=== PATIENT | female | born 1955 | race African-American/Black ===

== ENCOUNTER → 2017-01-08 | Outpatient (CLI) | payer OTHER ==
[~2017-01-08] VITALS: Ht 165.1 cm; Wt 69.4 kg
[~2017-01-08] MED LIST: ALDACTONE25 MG PO; ALPRAZOLAM; ALPRAZOLAM 0.0.25 M1 PO; ALPRAZOLAM 0.0.25 MG PO; AMBIEN 5 MG TABL5 M1 PO; AMBIEN CR 6.26.25 MG OR; AMBIEN CR 6.26.25 MG PO; AMBIENCR; AMITIZA 24 MCG24 MC1 PO; AMITRIPTYLINE H25 M2 PO; AMITRIPTYLINE H25 M3 PO; AMITRIPTYLINE H50 M2 GT; AMITRIPTYLINE H50 M2 PO; ANASPAZ0.125 MG; ANUCORT-HC25 MG RE; ARICEPT 5 MG TAB5 MG PO; ARICEPT PO; ARICEPT10 M1 PO; ARICEPT23 MG PO; ASA5UEC PO; ASPIR 8181 MG PO; AVELOX 400 MG400 MG PO; BACTROBAN CREAM30 G1 NS; BACTROBAN CREAM30 G1 TOP; BENTYL 20 MG TA20 M1 PO; BENTYL20 MG PO; BUPRENORPHIN-N1 EACH SL; BUTRANS1 EAC1 TD; CARAFATE 1 GM TA1 G1 PO; CARDIZEM; CARDIZEM CD240 MG PO; CATAPRES-TTS 20.2 M1 TRANSDERM; CLARITIN10 MG PO; COREG3.125 MG PO; CORTISPORIN EY7.5 ML INTRAOCULR; CYMBALTA30 MG PO; CYMBALTA60 MG PO; DILTIAZEM ER240 M1 PO; DOLOPHINE HCL5 MG PO; DONEPEZIL HCL5 MG; DOXYCYCLINE 10100 MG PO; E.E.S. 200200 MG/5 M PO; ELAVIL PO; ENBREL 25 MG KI25 M1; ENBREL SC; ENTRESTO 24 MG1 EACH PO; ERAXIS IV; ERGOCALCIF50000 UNIT; ERGOCALCIF50000 UNIT PO; FENTANYL PA25 MCG/HR TP; FLONASE 0.05%50 MCG INH; FLONASE 0.05%50 MCG NS; FLUCONAZOLE PO; FUROSEMIDE 40 M40 MG PO; GEMFIBROZIL 60600 MG PO; GLYCOLAX POWDER17 G1 PO; HUMIRA20 MG/0.4 INJ; HUMIRA20 MG/0.4 SQ; HUMIRA40 MG/0.8 SUBQ; HYDROCHLOROTH12.5 MG PO; HYDROCODON-ACE1 EAC5 PO; HYDROCODON-ACE1 EAC7 PO; HYZAAR 50-12.51 EACH PO; IMURAN 50MG TAB50 M1 PO; K-DUR 20 MEQ T20 MEQ PO; KEPPRA 500 MG500 M1 PO; KLOR-CON 1010 MEQ PO; LANOXIN 0.120.125 M1 PG; LANOXIN 0.120.125 M1 PO; LANOXIN 0.120.125 M2 PO; LANTUS; LANTUS IJ; LANTUS SUBQ; LASIX 20 MG TAB20 MG PO; LASIX 40 MG TAB40 M1 PO; LASIX 40 MG TAB40 M2 PO; LASIX 40 MG TAB40 MG PO; LEVAQUIN 500 M500 M2 PO; LEVAQUIN 500 M500 M4 PO; LEVAQUIN 500 M500 M6 PO; LEVAQUIN 500 M500 MG PO; LEVEMIR SQ; LEVOTHYROXIN0.025 MG PO; LOSARTAN-HCTZ1 EACH PO; LUNESTA3 MG PO; MAGOX 400400 MG PO; MELATONIN3 MG PO; METHADONE HCL5 MG OR; METHADONE HCL5 MG PO; METOCLOPRAMIDE10 MG PO; MIRALAX255 GM; MUCINEX TA600 MG/TA1 PO; NEXIUM40 MG PO; NITROGLYCERIN0.4 MG SUBLING; NORCO 10-325 T1 EACH PO; NORCO 5-325 TA1 EACH; NOVOLIN R100 UNIT/1 SQ; NOVOLOG; NOVOLOG100 UNIT/1; NOVOLOG100 UNIT/1 IJ; ONDANSETRON HCL4 M2 PO; PHENERGAN-CODE120 ML PO; PILOCARPINE HC7.5 MG; PILOCARPINE HC7.5 MG PO; PLAVIX 75 MG TA75 M1 PO; POLYETHYLENE G255 GM PO; POTASSIUM20 PO; PREDNISOLONE 5 M5 MG PO; PREDNISONE 10 M10 M1 PO; PREDNISONE 5 MG5 M1 PO; PREDNISONE 5 MG5 MG PO; PROAIR HFA8.5 GM IH; PROAIR HFA8.5 GM INH; PROBIOTIC1 EAC1 PO; PROCHLORPERAZINE5 M1 PO; PROPOXY-N-APAP1 EACH PO; PROTONIX40 M1 PO; PROZAC 20 MG20 M1 PO; RANITIDINE 150150 MG PO; REGLAN 10 MG TA10 MG PO; RELAFEN500 MG PO; RELAFEN750 MG PO; REMERON15 MG PO; REMERON30 MG OR; RIFAMPIN 300 M300 M1 PO; SONATA10 MG PO; SUBOXONE 2 MG-1 EAC2 SL; SUBOXONE 2 MG-1 EACH SL; SUBOXONE 2 MG-1 EACH SUBLING; SUBOXONE 8 MG-1 EAC1 SL; SUBOXONE 8 MG-1 EAC1 SUBLING; SUBOXONE 8 MG-1 EAC2 SL; SUBOXONE SL; SUDAFED30 MG PO; SYSTANE 0.3-0.1 EACH; TESSALON PERLE100 MG PO; TOPROL XL25 MG PO; TRIAMCINOLONE; TRIAMCINOLONE A80 G2 TOP; TYLENOL325 MG PO; ULTRAM 50MG TAB50 MG PO; VITAMIN B-12500 MCG PO; VITAMIN D 5050000 I1 PO; VITAMIN D400 UNI1 PO; VOLTAREN GEL 1100 G1 TOP; XALATAN2.5 ML OP; XALATAN2.5 ML OPHTHALMIC; XOPENEX 0.63 MG/3 M1 INH; XOPENEX0.63 MG/3 IH; XOPENEX0.63 MG/3 INH; ZANTAC 150MG T150 M1 PO; ZANTAC 150MG T150 MG PO; ZESTRIL5 MG PO; ZOFRAN ODT4 MG PO; ZOLPIDEM TART12.5 MG PO; ZYPREXA5 MG PO; [UNRECOGNIZED DRUG - OTHER]
--- NOTE | ~2017-01-08 | HPC ---
[facility] [place] [address] PAIN MANAGEMENT CONSULTATION Name: OTTONIEL INCK Room #: REG LAILA Lexis#: [id number] Admission: 01/08/17 Attend Phys: Memo Juarez DO Discharge: Date of : 51 Report #: [id number] THIS REPORT FOR: //name// CC: Abimbola Juarze HISTORY OF PRESENT ILLNESS: The patient is a very pleasant 61-year-old female well known to pain clinic, typically treated for scleroderma, chronic pain syndrome requiring complex medication management. Last seen in the pain clinic on 10/30/2016. Last urine drug screen was on October 2015, repeated on October 30 at last visit, positive for prescribed medications. She returns to pain clinic today noting medications are typically providing sufficient analgesia to participate in activities of daily living, chronic pain in her esophageal and right chest area. She notes it is a dull, chronic aching, made worse with cold air and seems to be worse in the afternoon, though medications do provide sufficient analgesia for her to participate in activities of daily living. Notes today that she has actually been a little bit worse recently. complaining of some shortness of breath and some sedation. Again, extremely low dose of opioid, Butrans patch at 5 mcg q. 7 days. Does use amitriptyline 50 mg at bedtime. Had prior been admitted to the hospital earlier this year for congestive heart failure. PHYSICAL EXAMINATION: VITAL SIGNS: Today shows 61-year-old female, BMI is 25.5 kilograms per meter squared. Blood pressure 109/57, pulse 76, respirations 14. She had fairly cold fingers, we were unable to get her oxygen saturation. NEUROLOGIC: Cranial nerves 2-12 are grossly intact. She has somewhat of a flat affect, but this is the patient's baseline. Cervical range of motion is modestly limited. PULMONARY: Sounds are distant, as unchanged. HEART: Regular rhythmical. No murmurs are noted. MUSCULOSKELETAL: The patient is, however, complaining of some anxiety and did note that she subjectively had some left arm pain, though this is not present at this time. NECK: Cervical range of motion is adequate. ASSESSMENT: History of scleroderma, pulmonary fibrosis, Sjogren syndrome requiring complex medication management, history of congestive heart failure, coronary artery disease. RECOMMENDATION: Discussed with the patient my concern that some of her sedation and shortness of breath as well as the left arm pain earlier may have been an anginal equivalent. Strongly recommend she follow up with her automobile glass technician. I have taken the liberty of continuing the buprenorphine at a low dose of 5 mcg q[address] [address] PAIN MANAGEMENT CONSULTATION Name: OTTONIEL NICK Room #: REG LAILA Pires#: [id number] Admission: 01/08/17 Attend Phys: Memo Juarez DO Discharge: Date of : 51 Report #: [id number] 7 days. I have taken the liberty of writing for 2 months of current medications. We will revise her Elavil prescription, currently taking 50 mg at bedtime, I wrote for two 25 mg tablets at night and asked her to drop down to 1 tablet for the next few days to see if that helps with her daytime somnolence. If it does not, again she will need to follow up with her automobile glass technician. Discharged in good and stable condition after moderately prolonged visit was spent with the patient, greater than 50% of the 25-minute visit was spent counseling the patient. <ELECTRONICALLY SIGNED> By: Memo Juarez DO 01/09/17 1308 [id number] [id number] Memo Juarez DO /nt
[2017-01-08 08:28] VITALS: BP 119/57
== END ==
LOC: PAIN 01-05 11:20
DX: G89.29 Other chronic pain (principal); I50.9 Heart failure, unspecified; I25.10 Atherosclerotic heart disease of native coronary artery without angina pectoris; Z87.891 Personal history of nicotine dependence

== ENCOUNTER → 2017-04-02 | Outpatient (CLI) | payer OTHER ==
[~2017-04-02] VITALS: Ht 162.6 cm; Wt 75.3 kg
--- NOTE | ~2017-04-02 | HPC ---
[facility] [place] [address] [place] [address] PAIN MANAGEMENT CONSULTATION Name: OTTONIEL NICK Room #: REG LAILA LewisShar#: [id number] Admission: 04/02/17 Attend Phys: Memo Juarez DO Discharge: Date of : 51 Report #: [id number] THIS REPORT FOR: //name// CC: Abimbola Juarez The patient is a 61-year-old female typically treated for scleroderma, chronic pain syndrome, chest wall pain requiring complex medication management. Last seen in the pain clinic, 01/08/2017. Last urine drug screen was 10/30/2016, positive for prescribed medication. The patient uses Butrans at a very low dose, 5 mcg every 7 days. Uses amitriptyline 25 mg 1-2 at bedtime. He returns to pain clinic today. She looks better than she had in some time. She is upbeat, smiling. States she went to [place] with her sister and niece, did a fair bit of walking. She notes pain continues to be relatively well controlled, in fact notes her pain is 0 at present. Pain tends to be worse in the afternoon and with cold air. She does better in the summer. Physical exam is relatively unchanged, 61-year-old female, BMI is 28.5 kilograms per meter squared. Vital signs stable as noted in the EMR. Rises from chair easily. Gait is tandem. Lungs are clear, still has a little pain with deep breath, but doing well on current medications. We reviewed the fact that opiate medications are being used to provide analgesia adequate to support activities of daily living, not attempting to achieve a specific pain score on the 0-10 Visual Analog Scale. The current opiate medications are providing sufficient analgesia to allow the patient to participate in activities of daily living. The patient is not exhibiting any aberrant behavior suggestive of drug diversion. The patient is not having any adverse reactions to medications. The patient is not suffering from daytime somnolence or mental acuity changes. The patient is managing opiate-induced constipation with appropriate gpva-yro-zgitsgc agents and dietary considerations. The patient was counseled on concern for caution with operating a motor vehicle while using opiate medications. A physical exam was performed and the patient's functional status was evaluated. All patients with back pain were advised against the bed rest greater than 4 days and were advised to return to normal activities. Pain score assessment was noted and the treatment plan was reviewed with the patient. All current medications, both prescribed and OTC were reviewed and reconciled on the electronic medical record. Tobacco screening was accomplished and smoking cessation was advised when indicated. BMI was noted and diet/exercise modification was recommended for all patients following outside normal parameters. I reviewed with the patient today their responsibilities to safeguard prescription medications, reviewed their responsibility to utilize medications [address] [address] PAIN MANAGEMENT CONSULTATION Name: MORIAH NICKRA Room #: REG LAILA Pires#: [id number] Admission: 04/02/17 Attend Phys: Memo Juarez DO Discharge: Date of : 51 Report #: [id number] only as prescribed by the physician. They are to seek and receive pain medications only from 1 physician group ([facility]). They are to use 1 pharmacy and keep the clinic informed if they change pharmacies. Their responsibilities include making followup visits in a timely fashion and to avoid abrupt discontinuation of medication usage. Their responsibilities further include bringing their medications (bottles from the pharmacy with residual pills) to the visit for possible confirmation of pill counts and the patient understands it is their responsibility to submit to random drug screens to ensure both that the medications prescribed are present, and that no other controlled substances are present. All prescriptions provided today were generated electronically. ASSESSMENT: Scleroderma, chronic pain syndrome, chest wall pain requiring complex medication management, component of fibromyalgia. RECOMMENDATION: Continue Butrans 5 mcg q. 7 days, dispense of 4 patches with 1 refill. Follow up in 2 months for reevaluation. <ELECTRONICALLY SIGNED> By: Memo Juarez DO 04/06/17 1427 0709 0804 Memo Juarez DO /nt
[2017-04-02 13:04] VITALS: BP 128/65
== END | disposition home or self-care (01) ==
LOC: PAIN 10:40
DX: M34.9 Systemic sclerosis, unspecified (principal); G89.4 Chronic pain syndrome; M79.7 Fibromyalgia; Z79.899 Other long term (current) drug therapy; Z87.891 Personal history of nicotine dependence

== ENCOUNTER → 2017-09-24 | Outpatient (CLI) | payer OTHER ==
[~2017-09-24] VITALS: Ht 165.1 cm; Wt 77.3 kg
[~2017-09-24] MED LIST changes: +BUTRANS1 EAC2 TRANSDERM; +MIRAPEX0.5 MG PO; +TRAMADOL 50 MG50 MG PO
--- NOTE | ~2017-09-24 | HPC ---
[facility] [address] [place] [address] PAIN MANAGEMENT CONSULTATION Name: OTTONIEL NICK Room #: REG LAILA Lexis#: [id number] Admission: 09/24/17 Attend Phys: Memo Juarez DO Discharge: Date of : 53 Report #: [id number] THIS REPORT FOR: //name// CC: Abimbola Juarez HISTORY OF PRESENT ILLNESS: The patient is a 62-year-old female, long treated for chronic pain requiring high risk complex medication management. She has scleroderma, axial back pain and myofascial pain. She has been stable on low dose agent, Butrans 5 mcg q. 7 days, Elavil 25 mg 1-2 at bedtime. Since we last saw her, she did have exacerbation of pain in the left shoulder. She saw her batter scaler and did get cortisone shot for same. She apparently got a small prescription of hydrocodone. I did diet counselor the patient regarding the problem of getting opiate analgesics when she has contract consent to treat the patient. Again, she is on an extremely low dose of opiate analgesic. She currently uses prednisone 5 mg a day. Does have some chronic cognitive concerns. She does take Aricept 23 mg daily. Insulin-dependent diabetes, some chronic anxiety for which she takes duloxetine; carvedilol for hypertension; levothyroxine for hypothyroidism; Nexium for chronic gastroesophageal reflux; pramipexole for restless leg syndrome. PHYSICAL EXAMINATION: Otherwise shows a 62-year-old female, BMI is ____ kilograms per meter squared. Vital signs stable as noted in the EMR. Does have a somewhat "gonzalez facies," compatible with chronic steroid use. Physical examination otherwise notes axial back pain, chest pain with deep respiration and pain in the left shoulder, though range of motion is improving. We reviewed the fact that opiate medications are being used to provide analgesia adequate to support activities of daily living, not attempting to achieve a specific pain score on the 0-10 Visual Analog Scale. The current opiate medications are providing sufficient analgesia to allow the patient to participate in activities of daily living. The patient is not exhibiting any aberrant behavior suggestive of drug diversion. The patient is not having any adverse reactions to medications. The patient is not suffering from daytime somnolence or mental acuity changes. The patient is managing opiate-induced constipation with appropriate ukez-vtf-owzrtcx agents and dietary considerations. The patient was counseled on concern for caution with operating a motor vehicle while using opiate medications. A physical exam was performed and the patient's functional status was evaluated. All patients with back pain were advised against the bed rest greater than 4 days and were advised to return to normal activities. Pain score assessment was noted and the treatment plan was reviewed with the patient. All current medications, both prescribed and OTC were reviewed and reconciled on the electronic medical record. Tobacco screening was accomplished and smoking [address] [address] PAIN MANAGEMENT CONSULTATION Name: OTTONIEL NICK Room #: REG [facility] Lexis#: [id number] Admission: 09/24/17 Attend Phys: Memo Juarez DO Discharge: Date of : 51 Report #: [id number] cessation was advised when indicated. BMI was noted and diet/exercise modification was recommended for all patients following outside normal parameters. I reviewed with the patient today their responsibilities to safeguard prescription medications, reviewed their responsibility to utilize medications only as prescribed by the physician. They are to seek and receive pain medications only from 1 physician group ( [facility]). They are to use 1 pharmacy and keep the clinic informed if they change pharmacies. Their responsibilities include making followup visits in a timely fashion and to avoid abrupt discontinuation of medication usage. Their responsibilities further include bringing their medications (bottles from the pharmacy with residual pills) to the visit for possible confirmation of pill counts and the patient understands it is their responsibility to submit to random drug screens to ensure both that the medications prescribed are present, and that no other controlled substances are present. All prescriptions provided today were generated electronically. ASSESSMENT: 1. Symptomatic left shoulder pain, relatively new diagnosis. 2. Chronic scleroderma with axial back pain, myofascial pain and chest wall pain requiring high risk complex medication management. RECOMMENDATIONS: Buccal drug swab today. It could be positive for hydrocodone possibly and may be positive for buprenorphine metabolites, though with low dose Butrans we have often seen negative buccal swabs. I have taken the liberty of renewing the patient's current medication for another 2 months. I suggest she follow up with batter scaler regarding concern for osteoporosis. I again counseled regarding using concurrent opiates from other physicians. <ELECTRONICALLY SIGNED> By: Memo Juarez DO 09/25/17 0757 [id number] Memo Juarez DO /nt
[2017-09-24 13:21] VITALS: BP 132/62
== END ==
LOC: PAIN 09-18 06:56
DX: G89.29 Other chronic pain (principal); M34.89 Other systemic sclerosis; M25.512 Pain in left shoulder; M54.9 Dorsalgia, unspecified; M79.1 Myalgia; R07.89 Other chest pain; Z79.899 Other long term (current) drug therapy

== ENCOUNTER → 2017-11-06 | Outpatient (CLI) | payer OTHER ==
[~2017-11-06] VITALS: Ht 162.6 cm; Wt 78.3 kg
--- NOTE | ~2017-11-06 | HPC ---
[facility] [address] [place] [address] PAIN MANAGEMENT CONSULTATION Name: OTTONIEL NICK Room #: REG LAILA Lexis#: [id number] Admission: 11/06/17 Attend Phys: Memo Juarez DO Discharge: Date of : 53 Report #: [id number] THIS REPORT FOR: //name// CC: Abimbola Juarez HISTORY OF PRESENT ILLNESS: The patient is a 62-year-old female, long known to the pain clinic, typically treated for scleroderma, axial back pain, osteoarthritis affecting left shoulder requiring complex medication management. Last seen in pain clinic on 09/24/2017. Continued on Butrans 5 mcg q. 7 days. We did a buccal swab at last visit, was positive for hydrocodone which the patient had taken from the dentist. We had talked about that at last visit. With her extremely low dose be Butrans, often times we will see that the buccal swab is negative as it was. She was indeed wearing her Butrans patch at the time of buccal swab. This was verified by myself and the RN. The patient returns to pain clinic today noting the past 2 weeks pain has become quite problematic in the right hip without antecedent trauma and overuse. She has been using a cane in her right hand. She has subjective weakness, some paresthesia and notes axial loading significantly exacerbates pain. PHYSICAL EXAMINATION: Shows 62-year-old female, BMI is 29.6 kilograms per meter squared. Blood pressure 126/70, pulse 70, respirations 16. Rises from chair using armrest, markedly antalgic gait, diffuse low back tenderness. No discrete trigger points are noted. Passive rotation of the hip exacerbates pain as does active rotation. Modestly positive Elham test. Left hip flexion strength is diminished and exacerbates pain. Patellar and Achilles reflexes are preserved, though diminished 0-1/4 and symmetric. Straight leg raise is equivocal. ASSESSMENT: 1. Chronic pain syndrome. 2. History of scleroderma. 3. Axial back pain. 4. Left shoulder pain. 5. Osteoarthritis affecting multiple joints including shoulders and hips, requiring complex medication management. RECOMMENDATIONS: 1. We will discontinue Butrans 5 mcg, increase to Butrans 10 mcg. I have taken the liberty of writing for 4 patches to be used q. 7 days. 2. Tramadol 50 mg up to t.i.d. for breakthrough pain. 3. Right hip joint injection under fluoroscopy. 4. Follow up in 4 weeks for reevaluation. PROCEDURE NOTE: Right hip joint injection under fluoroscopy. PROCEDURE: After written informed consent was obtained, [place] [address] PAIN MANAGEMENT CONSULTATION Name: OTTONIEL NICK Room #: REG [facility] Lexis#: [id number] Admission: 11/06/17 Attend Phys: Memo Juarez DO Discharge: Date of : 51 Report #: [id number] to the fluoroscopy suite and placed in supine position. Skin overlying the right hip was cleansed with ChloraPrep. Skin wheal with Xylocaine was raised. A 22-gauge stylet needle was placed to contact the distal femoral head. Negative aspiration was accomplished. A 1 mL of Omnipaque was injected, which showed spread within the acetabulum and hip joint. This was followed with 40 mg of triamcinolone plus 1.5 mL of 0.5% preservative-free bupivacaine. Needle was removed. The area was cleansed, Band-Aids applied. Fluoroscopy time was under 15 seconds. <ELECTRONICALLY SIGNED> By: Memo Juarez DO 11/09/17 0925 0958 1843 Memo Juarez DO /nt
[2017-11-06 09:22] VITALS: BP 126/70
== END | disposition home or self-care (01) ==
LOC: PAIN 07:09
DX: M16.11 Unilateral primary osteoarthritis, right hip (principal); G89.4 Chronic pain syndrome; M54.9 Dorsalgia, unspecified; M25.512 Pain in left shoulder; Z87.39 Personal history of other diseases of the musculoskeletal system and connective tissue; Z79.891 Long term (current) use of opiate analgesic; Z87.891 Personal history of nicotine dependence; Z88.0 Allergy status to penicillin; Z88.2 Allergy status to sulfonamides; Z88.8 Allergy status to other drugs, medicaments and biological substances; Z79.899 Other long term (current) drug therapy; Z79.82 Long term (current) use of aspirin

== ENCOUNTER → 2017-11-26 | Outpatient (CLI) | payer OTHER ==
[~2017-11-26] VITALS: Ht 162.6 cm; Wt 80.7 kg
--- NOTE | ~2017-11-26 | HPC ---
[facility] [address] [place] [address] PAIN MANAGEMENT CONSULTATION Name: OTTONIEL NICK Room #: REG LAILA Debbie.#: [id number] Admission: 11/26/17 Attend Phys: Memo Juarez DO Discharge: Date of : 51 Report #: [id number] THIS REPORT FOR: //name// CC: Abimbola Juarez The patient is a very pleasant 62-year-old female, typically treated for chronic pain syndrome and axial back pain, history of scleroderma, requiring complex medication management. She has osteoarthritis affecting left shoulder and right hip. Last seen in pain clinic on 11/06/2017. At that time, we had increased her Butrans from 5 to 10 mcg, using tramadol p.r.n., though with the increase in Butrans, she has been using it less. I did a right hip joint injection at that time with significant improvement of her right hip pain. The patient specifically notes 80% improvement overall. She returns to pain clinic today. Notes pain is generally doing well; however, she has been feeling poorly in the last 24-48 hours. She is febrile today with temperature 101.2. She notes some pulmonary congestion and sinus congestion. Rates her pain score of 5 on a VAS. She has a spinal cord stimulator placed to help with axial back pain. PHYSICAL EXAMINATION: VITAL SIGNS: Show pleasant 62-year-old female, BMI is 27.7 kilograms per meter squared. Blood pressure 159/66, pulse 79, respirations 16. Again, temperature is 101. NECK: Cervical range of motion is modestly limited. She has trace cervical adenopathy. Thyroid unremarkable. Tender over the bilateral frontal and left maxillary sinus. There is a little posterior pharyngeal erythema and injection. LUNGS: Clear with distant heart sounds. MUSCULOSKELETAL: She rises from the chair using armrest. Tandem gait with trace ataxia, though this is unchanged. Again, diffuse axial back pain, no discrete trigger points noted. Hip is improving. She still has pain, left shoulder, with some pain with passive and active range of motion. We reviewed the fact that opiate medications are being used to provide analgesia adequate to support activities of daily living, not attempting to achieve a specific pain score on the 0-10 Visual Analog Scale. The current opiate medications are providing sufficient analgesia to allow the patient to participate in activities of daily living. The patient is not exhibiting any aberrant behavior suggestive of drug diversion. The patient is not having any adverse reactions to medications. The patient is not suffering from daytime somnolence or mental acuity changes. The patient is managing opiate-induced constipation with appropriate sgqf-ybt-ljuvvcj agents and dietary considerations. The patient was counseled on concern for caution with operating a motor vehicle while using opiate medications. A physical exam was performed and the patient's functional status was evaluated. [address] [address] PAIN MANAGEMENT CONSULTATION Name: OTTONIEL NICK Room #: REG LAILA Pires#: [id number] Admission: 11/26/17 Attend Phys: Memo Juarez DO Discharge: Date of : 51 Report #: [id number] All patients with back pain were advised against the bed rest greater than 4 days and were advised to return to normal activities. Pain score assessment was noted and the treatment plan was reviewed with the patient. All current medications, both prescribed and OTC were reviewed and reconciled on the electronic medical record. Tobacco screening was accomplished and smoking cessation was advised when indicated. BMI was noted and diet/exercise modification was recommended for all patients following outside normal parameters. I reviewed with the patient today their responsibilities to safeguard prescription medications, reviewed their responsibility to utilize medications only as prescribed by the physician. They are to seek and receive pain medications only from 1 physician group ( [facility]). They are to use 1 pharmacy and keep the clinic informed if they change pharmacies. Their responsibilities include making followup visits in a timely fashion and to avoid abrupt discontinuation of medication usage. Their responsibilities further include bringing their medications (bottles from the pharmacy with residual pills) to the visit for possible confirmation of pill counts and the patient understands it is their responsibility to submit to random drug screens to ensure both that the medications prescribed are present, and that no other controlled substances are present. All prescriptions provided today were generated electronically. ASSESSMENT: Chronic axial back pain, history of osteoarthritis affecting left shoulder, right hip scleroderma, requiring complex medication management. RECOMMENDATION: Continue Butrans at 10 mcg q.7 days. I have taken the liberty of writing for 4 patches with 2 refills. Continue tramadol p.r.n., does not require injection for this. She does not require prescription for this, she is not using it daily. We will continue amitriptyline 25 mg 1-2 at bedtime. I have taken the liberty of writing for 3 months of both medications. I will be happy to see her on an as needed basis. Consideration for left shoulder injection under fluoroscopy if indicated clinically. We did contact Dr. Abimbola Hankins's office to have her follow up with Dr. Hankins regarding what appears to be an acute sinus infection. Again, with the patient's history of scleroderma, she has poor pulmonary reserve, with the chronic daily steroids, she is at higher risk for infection. In total, she was seen for greater than 25 minutes today concerned for comorbidities. We have kept her baseline medication unchanged. <ELECTRONICALLY SIGNED> By: Memo Juarez DO 11/30/17 0714 1302 1354 Memo Juarez DO /nt
[2017-11-26 12:48] VITALS: BP 138/78
== END ==
LOC: PAIN 07:04
DX: M54.5 Low back pain (principal); G89.29 Other chronic pain; M19.012 Primary osteoarthritis, left shoulder; M34.89 Other systemic sclerosis; Z79.899 Other long term (current) drug therapy

== ENCOUNTER → 2018-02-04 | Outpatient (CLI) | payer OTHER ==
[~2018-02-04] VITALS: Ht 162.6 cm; Wt 77.7 kg
--- NOTE | ~2018-02-04 | HPC ---
[facility] [place] [address] PAIN MANAGEMENT CONSULTATION Name: OTTONIEL NICK Room #: REG ENRICOJose Guadalupe Pires#: [id number] Admission: 02/04/18 Attend Phys: Memo Juarez DO Discharge: Date of : 51 Report #: [id number] THIS REPORT FOR: //name// CC: Abimbola Juarez The patient is a very pleasant 62-year-old female who has been a longstanding patient of the pain clinic, initially seen back in 2007. Most recently, she has been remarkably stable on low dose buprenorphine, Butrans 10 mcg patch q. 7 days with tramadol p.r.n. for breakthrough pain and Elavil 25 mg 2 tablets at bedtime. She was last seen in pain clinic on 11/26/2017. Ongoing axial back pain, scleroderma, requiring complex medication management. She was having some shoulder pain at last visit with osteoarthritis affecting her left shoulder and right hip. At last visit, she was actually feeling fairly poorly and in fact was admitted to the hospital subsequently for relatively prolonged stay (approximately 2 weeks) for metabolic changes and infection. She returns to pain clinic today. She looks better than she has in some time. She notes her pain is nominal 1/10. Has osteoarthritis affecting bilateral shoulders and hips as well as knees. She is actually getting along fairly well presently. Her primary pain is back and hip. Has some chronic chest pain secondary to the scleroderma. She describes chronic dull pain, worse in the afternoons, but again fairly nominal at present. PHYSICAL EXAMINATION: Shows pleasant 62-year-old female, BMI is 24.9 kilograms per meter squared, blood pressure 103/62, pulse 80s, respirations 16. She is alert and oriented to person, place, and time, judged to be a reasonable historian. She does not use tobacco products. She has not fallen in the last 6 months. The patient has long-term scleroderma with sequelae affecting her hands and some facial changes. Long-term osteoarthritis affecting multiple joints, though to her credit, she continues to walk, which is her exercise of choice. The patient's opiate consent to treat contract was signed on 03/06/2016. She has been very stable on current medications. Due to low dose Butrans, prior diagnostic studies including most recent random buccal swab on 09/24/2017 was negative for buprenorphine despite me personally visualizing the patch that she was wearing. She does use alprazolam and amitriptyline, those agents were positive. She did have hydrocodone, I believe from her dentist. I was prior informed of that agent and that use was okay. Again, she does use tramadol on a p.r.n. basis. We reviewed the fact that opiate medications are being used to provide analgesia [address] [address] PAIN MANAGEMENT CONSULTATION Name: OTTONIEL NICK Room #: REG LAILA Pires#: [id number] Admission: 02/04/18 Attend Phys: Memo Juarez DO Discharge: Date of : 51 Report #: [id number] adequate to support activities of daily living, not attempting to achieve a specific pain score on the 0-10 Visual Analog Scale. The current opiate medications are providing sufficient analgesia to allow the patient to participate in activities of daily living. The patient is not exhibiting any aberrant behavior suggestive of drug diversion. The patient is not having any adverse reactions to medications. The patient is not suffering from daytime somnolence or mental acuity changes. The patient is managing opiate-induced constipation with appropriate [id number]-[id number] agents and dietary considerations. The patient was counseled on concern for caution with operating a motor vehicle while using opiate medications. A physical exam was performed and the patient's functional status was evaluated. All patients with back pain were advised against the bed rest greater than 4 days and were advised to return to normal activities. Pain score assessment was noted and the treatment plan was reviewed with the patient. All current medications, both prescribed and OTC were reviewed and reconciled on the electronic medical record. Tobacco screening was accomplished and smoking cessation was advised when indicated. BMI was noted and diet/exercise modification was recommended for all patients following outside normal parameters. I reviewed with the patient today their responsibilities to safeguard prescription medications, reviewed their responsibility to utilize medications only as prescribed by the physician. They are to seek and receive pain medications only from 1 physician group ( [facility]). They are to use 1 pharmacy and keep the clinic informed if they change pharmacies. Their responsibilities include making followup visits in a timely fashion and to avoid abrupt discontinuation of medication usage. Their responsibilities further include bringing their medications (bottles from the pharmacy with residual pills) to the visit for possible confirmation of pill counts and the patient understands it is their responsibility to submit to random drug screens to ensure both that the medications prescribed are present, and that no other controlled substances are present. All prescriptions provided today were generated electronically. ASSESSMENT: Symptomatic axial back pain, multiple joints, pain secondary to osteoarthritis, primarily shoulders and hips; history of scleroderma with chest wall pain requiring complex medication management, stable on baseline medications. RECOMMENDATIONS: I had a long discussion with the patient today. I did tell her that I would be leaving the practice; however, she might consider following up with Dr. Jamie Juarez, who has a little more experience with Butrans other than some of the other physicians. We will continue this medication unchanged. [facility] [address] [place] [address] PAIN MANAGEMENT CONSULTATION Name: OTTONIEL NICK Room #: REG LAILA Pires#: [id number] Admission: 02/04/18 Attend Phys: Memo Juarez DO Discharge: Date of : 51 Report #: [id number] I wrote for tramadol, Butrans and Elavil with a quantity sufficient for 30 days with 2 refills. Discharged in good and stable condition. <ELECTRONICALLY SIGNED> By: Memo Juarez DO 02/05/18 [id number] Memo Juarez DO /nt
[2018-02-04 13:34] VITALS: BP 113/62
== END ==
LOC: PAIN 07:12
DX: M54.9 Dorsalgia, unspecified (principal); M16.0 Bilateral primary osteoarthritis of hip; M19.012 Primary osteoarthritis, left shoulder; M19.011 Primary osteoarthritis, right shoulder; Z79.899 Other long term (current) drug therapy

== ENCOUNTER → 2018-07-21 | Outpatient (CLI) | payer OTHER ==
[~2018-07-21] VITALS: Ht 167.6 cm; Wt 74.5 kg
[~2018-07-21] MED LIST changes: +XELJANZ XR11 MG PO
--- NOTE | ~2018-07-21 | HPC ---
[facility] [address] [address] PAIN MANAGEMENT CONSULTATION Name: OTTONIEL NICK Room #: REG LAILA MSharMallika.#: [id number] Admission: 07/21/18 Attend Phys: Jamie Juarez DO Discharge: Date of : 53 Report #: [id number] THIS REPORT FOR: //name// CC: Abimbola Juarez DATE OF SERVICE: 07/21/2018 CHIEF COMPLAINT: Chronic pain secondary to underlying disease process, chronic low back pain, scleroderma and osteoarthritis. HISTORY OF PRESENT ILLNESS: As you know, the patient is a 62-year-old female who has been followed by [facility] for medication management for chronic low back pain, scleroderma, osteoarthritis and other underlying painful disorders. She has been stabilized on dose of medication for Butrans patch 10 mcg per week along with use of tramadol 50 mg 3 times a day. She has also been started on amitriptyline for neuropathic pain control. She returns today in followup visit stating a pain level of no greater than 2/10. She reports no side effects to medication. She returns requesting refill of therapy. ALLERGIES: PENICILLIN, SULFA, CODEINE and ERYTHROMYCIN. CURRENT MEDICATIONS: Tramadol, buprenorphine, amitriptyline, Mirapex, spironolactone, ranitidine, Lunesta, potassium chloride, furosemide, omeprazole, Aristocort, ondansetron, levothyroxine, carvedilol, aspirin, alprazolam, acetaminophen, MiraLax, prednisone, benazepril, insulin, albuterol, metoclopramide and duloxetine. SOCIAL HISTORY: The patient reports herself a nonsmoker. Denies IV or illicit drug use. Denies any chronic alcohol use. She is on disability, has been so for many years. She is unaccompanied today. IMAGING DATA: No new imaging available. PQRS: The patient has osteoarthritis, bilateral shoulders, bilateral hips and knees. No rheumatoid arthritis. She is placing pain intensity 2/10. She is a fall risk and has had a fall in the last 3 months. She is not on blood thinners. She is treated for hypertension. She has been on opioids for a prolonged period of time. She has a moderate risk of opioid addiction. She is placing pain impact score 39/70, moderate interference of daily activities secondary to pain. PHYSICAL EXAMINATION: VITAL SIGNS: Blood pressure 115/66, pulse 83 and respiratory rate 14 and unlabored. The patient is 100% on room air. Height 5 feet 6 inches tall, [place] [address] PAIN MANAGEMENT CONSULTATION Name: OTTONIEL NICK Room #: REG [facility].#: [id number] Admission: 07/21/18 Attend Phys: Jamie Juarez DO Discharge: Date of : 53 Report #: [id number] weight 164.2 pounds and BMI calculated 26.5. GENERAL: Well-developed, well-nourished, well-hydrated 62-year-old female appearing stated age, placing pain today 10/17. HEENT: Normocephalic and atraumatic. Pupils equal, round and reactive to light. EXTREMITIES: Show no clubbing and no cyanosis. There is 1+ nonpitting lower extremity edema noted again today. MUSCULOSKELETAL: The patient rises from a chair utilizing armrest. There is some difficulty with arising. Tandem gait is antalgic and wide based. She has diffuse axial back pain to palpation. No spinous process tenderness. Active and passive range of motion of the left shoulder and right shoulder is met with increased pain, left greater than right. ASSESSMENT: 1. Left shoulder pain. 2. Chronic intractable pain. 3. Chronic low back pain. 4. Lumbosacral spondylosis without radiculopathy. 5. Lumbar degeneration. 6. Scleroderma. 7. Opioid dependency. 8. Complicated medical therapy. PLAN: 1. The patient returns today in followup visit indicating good efficacy with the Butrans, tramadol and amitriptyline combination. At present, she is reporting no side effects to the therapy. She does feel medications are working beneficially. She has requested refill of the medication be provided today. We have agreed to continue the medication at this point until which time changes need to be made based on CDC's recommendations. She returns for refill of medications to be provided for the next 3 months. 2. The patient was provided prescription of Butrans 10 mcg patch 1 patch per week. I have given the patient #4 with 2 refills, 3 months' worth of medication. 3. The patient was provided prescription of tramadol 50 mg dose 1 tab p.o. q. 8 hours p.r.n. for pain, I have given the patient #90, two refills, 3 months' worth of medication. 4. The patient was provided prescription of amitriptyline 25 mg dose 1-2 tabs p.o. at bedtime, I have given the patient #60 tablets, 2 refills. 5. We will see the patient back in followup visit in 3 months. At that time, discuss the efficacy of the medication to determine if continuation of treatment is recommended. <ELECTRONICALLY SIGNED> By: Jamie Juarez DO 07/27/18 0846 [id number] Jamie Juarez DO /cory
[2018-07-21 09:25] VITALS: BP 115/66
== END ==
LOC: PAIN 07:08
DX: R07.9 Chest pain, unspecified (principal); G89.29 Other chronic pain; Z79.891 Long term (current) use of opiate analgesic; Z79.899 Other long term (current) drug therapy; Z87.891 Personal history of nicotine dependence

== ENCOUNTER → 2018-10-26 | Outpatient (CLI) | payer OTHER ==
[~2018-10-26] VITALS: Ht 162.6 cm; Wt 73.2 kg
[2018-10-26 10:39] VITALS: BP 107/66
--- NOTE | 2018-10-26 10:46 | NUR ---
Pain Clinic Assessment: 1. History of Osteoarthritis: History of Rheumatoid Arthritis: 2. Height: 5 ft. 4 in. 162.6 cm. Weight: 161.4 lb. oz. 73.211 kg. Patient's BMI: 27.7 3. Vital Signs: BP: 107/66 Pulse: 78 Resp: 18 Temp: 02 Sat: ECG Mon: 4. Pain Intensity: 2 5. Fall Risk: Dizziness: N Needs help standing or walking: N Fallen in the last 3 months: Y Fall risk comments: FELL AT HOME IN MARCH- FELL FROM BED WAS HOSPITALIZED AND TREATED- DOING WELL NOW 6. Patient on Blood Thinner: None 7. History of Hypertension: Y 8. Opioid Therapy greater than 6 weeks: Y Opiate Contract Signed: 03/06/16 9. Risk Assessment Tool Provided: 4-MOD 10. Functional Assessment Tool: 39 11. Recreational Drug Use: Never Drug Type: Tobacco Use: Former Smoker Tobacco Type: Amount or Packs/day: How Many Years: Alcohol Use: No Frequency: Quant:
--- NOTE | 2018-11-02 07:34 | HPC ---
[facility] [address] [address] PAIN MANAGEMENT CONSULTATION Name: OTTONIEL NICK Room #: REG LAILA Lewis.#: [id number] Admission: 10/26/18 ������������������ Attend Phys: Jamie Juarez DO Discharge: ������������������ Date of : 53 Report #: [id number] THIS REPORT FOR: //name// CC: Abimbola Juarez DATE OF SERVICE: 10/26/2018 REFERRING PHYSICIAN: Abimbola Hankins M.D. CHIEF COMPLAINT: Chronic pain secondary to underlying disease processes, chronic low back pain, scleroderma and osteoarthritis. HISTORY OF PRESENT ILLNESS: As you know, the patient is a 63-year-old female who returns today in followup visit for continuation of medication management. She reports a recent left lateral malleolus fracture sustained while at home. Apparently, she was attempting to get ice out of the freezer when she passed out and awoke on the floor with instantaneous development of left lateral ankle pain. She was seen at the Emergency Department, admitted and given treatment for the malleolar fracture. She continues to utilize a Cam boot and has some weightbearing currently. She returns today in followup visit, requesting medication management. She is reporting pain at the greatest 2/10. She indicates other than this recent incidence of passing out at home, she has not had any falls to speak of. She returns today in followup visit stating no side effects to her medication. We have taken the liberty of running a [facility]-TRACS, which shows appropriate refills of her medications. She returns for refill of medications per our opioid contract. ALLERGIES: PENICILLIN, SULFA, CODEINE AND ERYTHROMYCIN. CURRENT MEDICATIONS: Tramadol, buprenorphine, amitriptyline, Xeljanz, Mirapex, spironolactone, ranitidine, Lunesta, furosemide, Entresto, omeprazole, triamcinolone acetate, ondansetron, levothyroxine, cyanocobalamin, carvedilol, aspirin, alprazolam, acetaminophen, MiraLax, prednisone, Aricept, insulin, albuterol, metoclopramide and duloxetine. SOCIAL HISTORY: The patient reports herself as a nonsmoker. Denies IV or illicit drug use. Denies any chronic alcohol use. She is on disability. She is unaccompanied today. IMAGING: No new imaging available. PQRS: The patient has known osteoarthritic changes of the bilateral shoulders, bilateral hips and knees. No rheumatoid arthritis. She is reporting pain intensity today about 2/10. She is a fall risk and has had a fall recently, [address] [address] PAIN MANAGEMENT CONSULTATION Name: OTTONIEL NICK Room #: REG [facility].#: [id number] Admission: 10/26/18 ������������������ Attend Phys: Jamie Juarez DO Discharge: ������������������ Date of : 51 Report #: [id number] sustaining a left lateral malleolar fracture. She does use ambulatory device and is in the Cam boot. She is not on blood thinners. She has history of hypertension. She has been on opioids for an extended period of time. She has a moderate risk of opioid addiction. She is placing pain impact score 39/70, indicating moderate interference of daily activities secondary to pain. PHYSICAL EXAMINATION: VITAL SIGNS: Blood pressure 107/66, pulse 78 and respiratory rate 18 and unlabored. The patient is 99% on room air. Height 5 feet 4 inches tall, weight 161.4 pounds and BMI calculated 27.7. GENERAL: Well-developed, well-nourished, well-hydrated 63-year-old female, appearing older than stated age, placing current pain score at around 2/10. HEENT: Head normocephalic, atraumatic. Pupils equal, round and reactive to light. Extraocular muscles are intact. Speech is fluent for the patient. EXTREMITIES: Show no clubbing, no cyanosis. There is a Cam boot over the left lower extremity. No edema noted bilaterally. MUSCULOSKELETAL: The patient has difficulty rising from a chair. Tandem gait is antalgic prior to the Cam boot and appears to be more antalgic now with a Cam boot. No specific trigger points are identified in the axial back. There is diffuse axial tenderness. Active and passive range of motion of the left shoulder is met with increasing pain. Right shoulder is limited in motion, but pain is not elicited. ASSESSMENT: 1. Left shoulder pain. 2. Chronic low back pain. 3. Lumbosacral spondylosis without radiculopathy. 4. Lumbar degeneration. 5. Scleroderma. 6. Opioid dependency. 7. Complicated medication management. PLAN: 1. The patient returns today in followup visit to continue her Butrans therapy. She has been on Butrans for almost 3-1/2 years. She was started on Butrans on 05/31/2015, a transition off of oral buprenorphine in the form of Suboxone. She has tolerated the Butrans well and has only escalated to 10 mcg patch over the intervening years. She is showing no tolerance to the medication at present. She feels it is working well for pain control, requesting refills of the Butrans, tramadol and amitriptyline at today's appointment. 2. The patient was provided prescription of Butrans 10 mcg patch 1 patch q.week, given #4 patches, 2 refills, which is 3 months' worth of medication. She has been appropriate with the refill of the medication. She has not called for early refills nor she had lost or stolen prescriptions. We recommend continuing the Butrans, for which the patient has been on since 05/2015. 3. The patient was provided prescription of tramadol 50 mg dose 1 tab p.o. [address] [address] PAIN MANAGEMENT CONSULTATION Name: OTTONIEL NICK Room #: REG LAILA Lewis.#: [id number] Admission: 10/26/18 ������������������ Attend Phys: Jamie Juarez DO Discharge: ������������������ Date of : 51 Report #: [id number] t.i.d. p.r.n. pain. I have given the patient #90 tablets, 2 refills, 3 months' worth of medication. I advised the patient to take this medication only when pain is intolerable, not to rely on this medication prophylactically. 4. The patient will continue on amitriptyline 25 mg dose 2 tabs p.o. at bedtime for a total of 50 mg. She is given #60 tablets, 2 refills. This is beneficial for neuropathic pain control. 5. We reviewed the fact that opiate medications are being used to provide analgesia adequate to support activities of daily living, not attempting to achieve a specific pain score on the 0-10 Visual Analog Scale. The current opiate medications are providing sufficient analgesia to allow the patient to participate in activities of daily living. The patient is not exhibiting any aberrant behavior suggestive of drug diversion. The patient is not having any adverse reactions to medications. The patient is not suffering from daytime somnolence or mental acuity changes. The patient is managing opiate-induced constipation with appropriate [id number]-[id number] agents and dietary considerations. The patient was counseled on concern for caution with operating a motor vehicle while using opiate medications. A physical exam was performed and the patient's functional status was evaluated. All patients with back pain were advised against the bed rest greater than 4 days and were advised to return to normal activities. Pain score assessment was noted and the treatment plan was reviewed with the patient. All current medications, both prescribed and OTC were reviewed and reconciled on the electronic medical record. Tobacco screening was accomplished and smoking cessation was advised when indicated. BMI was noted and diet/exercise modification was recommended for all patients following outside normal parameters. I reviewed with the patient today their responsibilities to safeguard prescription medications, reviewed their responsibility to utilize medications only as prescribed by the physician. They are to seek and receive pain medications only from 1 physician group ( [facility]). They are to use 1 pharmacy and keep the clinic informed if they change pharmacies. Their responsibilities include making followup visits in a timely fashion and to avoid abrupt discontinuation of medication usage. Their responsibilities further include bringing their medications (bottles from the pharmacy with residual pills) to the visit for possible confirmation of pill counts and the patient understands it is their responsibility to submit to random drug screens to ensure both that the medications prescribed are present, and that no other controlled substances are present. All prescriptions provided today were generated electronically. [address] [address] PAIN MANAGEMENT CONSULTATION Name: OTTONIEL NICK Room #: REG CLJose Guadalupe Pires#: [id number] Admission: 10/26/18 ������������������ Attend Phys: Jamie Juarez DO Discharge: ������������������ Date of : 51 Report #: [id number] 6. We will see the patient back in followup visit in 3 months for medication management. ��������������������������������������������� <ELECTRONICALLY SIGNED> ���������������������������������������� By: Jamie Juarez DO ��������������������������������������������� 11/02/18 0734 [id number] Jamie Juarez DO /
== END ==
LOC: PAIN 09-28 13:37
DX: M25.512 Pain in left shoulder (principal); M47.817 Spondylosis without myelopathy or radiculopathy, lumbosacral region; M34.9 Systemic sclerosis, unspecified; F11.20 Opioid dependence, uncomplicated; G89.29 Other chronic pain; Z88.0 Allergy status to penicillin; Z88.2 Allergy status to sulfonamides; Z88.1 Allergy status to other antibiotic agents; Z88.5 Allergy status to narcotic agent; Z79.899 Other long term (current) drug therapy

== ENCOUNTER → 2019-02-01 | Outpatient (CLI) | payer OTHER ==
[~2019-02-01] VITALS: Ht 162.6 cm; Wt 73.2 kg
[~2019-02-01] MED LIST changes: +BUTRANS1 EAC2 TOP
[2019-02-01 08:38] VITALS: BP 111/77
--- NOTE | 2019-02-01 08:53 | NUR ---
Pain Clinic Assessment: 1. History of Osteoarthritis: BACK History of Rheumatoid Arthritis: YES 2. Height: 5 ft. 4 in. 162.6 cm. Weight: 161.4 lb. oz. 73.211 kg. Patient's BMI: 27.7 3. Vital Signs: BP: 111/77 Pulse: 89 Resp: 16 Temp: 02 Sat: 100 ECG Mon: 4. Pain Intensity: 0 5. Fall Risk: Dizziness: N Needs help standing or walking: N Fallen in the last 3 months: N Fall risk comments: FELL AT HOME IN MARCH- FELL FROM BED WAS HOSPITALIZED AND TREATED- DOING WELL NOW 6. Patient on Blood Thinner: None 7. History of Hypertension: Y 8. Opioid Therapy greater than 6 weeks: Y Opiate Contract Signed: 03/06/16 9. Risk Assessment Tool Provided: 4-MOD 10. Functional Assessment Tool: 39 11. Recreational Drug Use: Never Drug Type: Tobacco Use: Former Smoker Tobacco Type: Amount or Packs/day: How Many Years: Alcohol Use: No Frequency: Quant:
--- NOTE | 2019-02-03 15:15 | HPC ---
[facility] [address] [place] [address] PAIN MANAGEMENT CONSULTATION Name: OTTONIEL NICK Room #: REG ENRICOJose Guadalupe Lewis.#: [id number] Admission: 02/01/19 ������������������ Attend Phys: Vero Mendez Discharge: ������������������ Date of : 51 Report #: [id number] THIS REPORT FOR: //name// CC: Vero Marche [place] DATE OF SERVICE: 02/01/2019 CHIEF COMPLAINT: Chronic pain secondary to disease processes, chronic low back pain, scleroderma and osteoarthritis. HISTORY OF PRESENT ILLNESS: As you know, this is a 63-year-old female who returns to the pain clinic today for continuation of medication management. She tells me that her pain score today is 0. She had recently taken her medications and is doing quite well. Normally, her pain is in her chest area. She tells me that her patch and her tramadol are quite effective in controlling this pain. Her activity does make her pain worse, but she has not done much of that today and her medications are very helpful. She also does complain of some bilateral knee pain as well. She denies any problems with constipation. She tells me that sometimes the tramadol does make her slightly sleepy but does not take this medication and drive or go out in public. She only takes it when she is at home. ALLERGIES: PENICILLIN, SULFA, CODEINE and ERYTHROMYCIN. CURRENT MEDICATIONS: Tramadol 50 mg 1-3 tablets a day p.r.n., Butrans 10 mcg patch, amitriptyline 25 mg daily, Xeljanz XR 11 mg daily, Mirapex 2 tablets at bedtime, spironolactone daily, Zantac at bedtime, Lunesta 3 mg at bedtime, Lasix 20 mg daily, Entresto 24/26 b.i.d., Nexium daily, Synthroid 25 mcg daily, vitamin B12, Coreg 3.125 b.i.d., aspirin daily, Xanax 0.25 mg tablets daily, MiraLax, prednisone 5 mg daily, Aricept 23 mg daily, Lantus at bedtime, Reglan before meals and bedtime, Cymbalta 60 mg daily and NovoLog sliding scale. PQRS: 1. She has osteoarthritis in her back and she also has rheumatoid arthritis and being treated for. 2. Her height is 5 feet 4 inches, weight is 161 and BMI is 27. 3. VITAL SIGNS: Blood pressure 111/77, pulse is 89, respirations 16 and oxygen sat is 100. Pain score 0. 4. Fall risk. Denies dizziness. Does not need help with walking or standing. Has not fallen in the last 3 months. 5. The patient is not on any blood thinners, does have a history of hypertension. 6. Opioid therapy is greater than 6 weeks; therefore, an opiate signed contract is on the chart. 7. Risk assessment tool is moderate. Functional assessment is 39/70. [address] [address] PAIN MANAGEMENT CONSULTATION Name: OTTONIEL NICK Room #: REG LAILA Pires#: [id number] Admission: 02/01/19 ������������������ Attend Phys: Vero Mendez Discharge: ������������������ Date of : 51 Report #: [id number] 8. Recreational drug use, she denies. She is a former smoker and does not drink alcohol. The prescription monitoring system did not find her in their system, filling any narcotics from us, so we did call her local [facility] pharmacy and she has been filling appropriately for her medications and is on time today, we will check a drug screen on her in her next visit as it will have been a year since her last screen. PHYSICAL EXAMINATION: GENERAL: This is a well-developed, well-nourished, well-hydrated 63-year-old female appearing older than her stated age. Placing her pain score today at 0/10. HEENT: Normocephalic and atraumatic. Pupils equal, round and reactive to light. Extraocular muscles are intact. Speech is fluent. EXTREMITIES: No clubbing and no cyanosis. MUSCULOSKELETAL: The patient rises from the chair using the arms. She does walk with a slightly antalgic gait. No specific trigger points are identified in her axial back. There is some diffuse tenderness in her axial back. The patient complains of bilateral knee tenderness, which is reproduced with active range of motion. Lower extremity strength is judged to be 5/5 in all major muscle groups. We reviewed the fact that opiate medications are being used to provide analgesia adequate to support activities of daily living, not attempting to achieve a specific pain score on the 0-10 Visual Analog Scale. The current opiate medications are providing sufficient analgesia to allow the patient to participate in activities of daily living. The patient is not exhibiting any aberrant behavior suggestive of drug diversion. The patient is not having any adverse reactions to medications. The patient is not suffering from daytime somnolence or mental acuity changes. The patient is managing opiate-induced constipation with appropriate ytlj-spt-yhfqwtd agents and dietary considerations. The patient was counseled on concern for caution with operating a motor vehicle while using opiate medications. A physical exam was performed and the patient's functional status was evaluated. All patients with back pain were advised against the bed rest greater than 4 days and were advised to return to normal activities. Pain score assessment was noted and the treatment plan was reviewed with the patient. All current medications, both prescribed and OTC were reviewed and reconciled on the electronic medical record. Tobacco screening was accomplished and smoking cessation was advised when indicated. BMI was noted and diet/exercise modification was recommended for all patients following outside normal parameters. I reviewed with the patient today their responsibilities to [facility] [address] [place] [address] PAIN MANAGEMENT CONSULTATION Name: OTTONIEL NICK Room #: REG Jose Guadalupe Pires#: [id number] Admission: 02/01/19 ������������������ Attend Phys: Vero Mendez Discharge: ������������������ Date of : 51 Report #: [id number] prescription medications, reviewed their responsibility to utilize medications only as prescribed by the physician. They are to seek and receive pain medications only from 1 physician group ( [facility]). They are to use 1 pharmacy and keep the clinic informed if they change pharmacies. Their responsibilities include making followup visits in a timely fashion and to avoid abrupt discontinuation of medication usage. Their responsibilities further include bringing their medications (bottles from the pharmacy with residual pills) to the visit for possible confirmation of pill counts and the patient understands it is their responsibility to submit to random drug screens to ensure both that the medications prescribed are present, and that no other controlled substances are present. All prescriptions provided today were generated electronically. PLAN: 1. We discussed treatment options with the patient today. The patient tells me she is doing quite well on her current medication regime. Scripts given for tramadol 50 mg #90 with 2 additional refills and Butrans patch 10 mcg once weekly, #4 with 2 additional refills and amitriptyline 25 mg 2 at bedtime 60 with 2 additional refills. 2. The patient will return in 3 months' time, which we will repeat a urine drug screen at that time. 3. The patient is seen in collaboration with Dr. Jamie Juarez. ��������������������������������������������� <ELECTRONICALLY SIGNED> ���������������������������������������� By: Vero Mendez ��������������������������������������������� 02/03/19 1515 1028 0031 Vero Mendez /nt
== END ==
LOC: PAIN 06:50
DX: M19.90 Unspecified osteoarthritis, unspecified site (principal); M54.5 Low back pain; G89.29 Other chronic pain; M34.9 Systemic sclerosis, unspecified; Z88.0 Allergy status to penicillin; Z88.2 Allergy status to sulfonamides; Z88.1 Allergy status to other antibiotic agents; Z88.5 Allergy status to narcotic agent; Z79.899 Other long term (current) drug therapy

== ENCOUNTER → 2019-04-06 | Outpatient (CLI) | payer OTHER ==
[~2019-04-06] VITALS: Ht 162.6 cm; Wt 78.0 kg
[~2019-04-06] MED LIST changes: +BUTRANS1 EAC1 TRANSDERM
[2019-04-06 10:12] VITALS: BP 133/66
--- NOTE | 2019-04-06 10:13 | NUR ---
Pain Clinic Assessment: 1. History of Osteoarthritis: BACK History of Rheumatoid Arthritis: YES HANDS SHOULDERS 2. Height: 5 ft. 4 in. 162.6 cm. Weight: 172.0 lb. oz. 78.019 kg. Patient's BMI: 29.5 3. Vital Signs: BP: 133/66 Pulse: 85 Resp: 16 Temp: 02 Sat: 96 ECG Mon: 4. Pain Intensity: 3 5. Fall Risk: Dizziness: N Needs help standing or walking: N Fallen in the last 3 months: N Fall risk comments: FELL AT HOME IN MARCH- FELL FROM BED WAS HOSPITALIZED AND TREATED- DOING WELL NOW 6. Patient on Blood Thinner: None 7. History of Hypertension: Y 8. Opioid Therapy greater than 6 weeks: Y Opiate Contract Signed: 03/06/16 9. Risk Assessment Tool Provided: 4-MOD 10. Functional Assessment Tool: 39 11. Recreational Drug Use: Never Drug Type: Tobacco Use: Former Smoker Tobacco Type: Amount or Packs/day: How Many Years: Alcohol Use: No Frequency: Quant:
--- NOTE | 2019-04-07 16:01 | HPC ---
[facility] [address] [place] [address] PAIN MANAGEMENT CONSULTATION Name: OTTONIEL NICK Room #: REG [facility] MRoni.#: [id number] Admission: 04/06/19 ������������������ Attend Phys: Vero Mendez Discharge: ������������������ Date of : 51 Report #: [id number] THIS REPORT FOR: //name// CC: Vero Marche [place] DATE OF SERVICE: 04/06/2019 CHIEF COMPLAINT: Chronic pain secondary to scleroderma and osteoarthritis. HISTORY OF PRESENT ILLNESS: This is a 63-year-old female who returns to the pain clinic today for continuation of her medical management that she uses to help treat her chronic low back pain. Today, she is also complaining of some right hip pain. She feels like she has bursitis in this and is thinking about needing another injection by Dr. Juarez. Her previous injection was greater than 1 year ago. She has done quite well for a significant period of time, but she feels that it has been more bothersome in the last few weeks. The patient reports a pain score of 3/10 today. It is a stabbing, sharp, achy pain, worse with walking and sitting, but better with her medications. She denies any problems with constipation or feeling like she is overmedicated. ALLERGIES: PENICILLIN, SULFA, CODEINE AND ERYTHROMYCIN. MEDICATIONS: Butrans 10 mcg patch weekly, amitriptyline 25 mg 2 tablets at bedtime, tramadol 50 mg p.r.n., Xeljanz XR 11 mg daily, Mirapex, Aldactone, Zantac, Lunesta, Lasix, Entresto, Nexium, Synthroid, vitamin B, Coreg, aspirin, alprazolam, Tylenol Extra Strength, MiraLax, prednisone, Aricept, Lantus, Reglan, Cymbalta and NovoLog. PQRS REVIEW: 1. 1. She has osteoarthritis, scleroderma and rheumatoid arthritis and is being treated for all of them. 2. 2. Height is 5 feet 4 inches, weight is 172 and BMI is 29. 3. 3. Vital signs, 133/66, pulse is 85, respirations 16 and oxygen sat is 96. 4. 4. Pain score is 3/10. 5. 5. The patient denies dizziness, does not need help walking or standing, has not fallen in the last 3 months. 6. 6. The patient is not on any blood thinners. She does have a history of hypertension. 7. 7. Opioid therapy is greater than 6 weeks; therefore, an opioid signed contract is on the chart. Her risk assessment is moderate. Her functional assessment is 39/70. 8. Recreational drug use, she denies. She is a former smoker and does not drink alcohol. [address] [address] PAIN MANAGEMENT CONSULTATION Name: OTTONIEL NICK Room #: REG LAILA Pires#: [id number] Admission: 04/06/19 ������������������ Attend Phys: Vero Mendez Discharge: ������������������ Date of : 51 Report #: [id number] According to the prescription monitoring system, the patient is filling at [facility] appropriately. We will check a random drug screen on this patient today since it has been greater than one year. PHYSICAL EXAMINATION: GENERAL: This is a well-developed, well-nourished and well-hydrated 63-year-old female, who appears her stated age, placing her current pain score at 3/10 today. HEENT: Normocephalic, atraumatic. Pupils equal, round and reactive to light. Extraocular muscles are intact. EXTREMITIES: No clubbing, no cyanosis noted. MUSCULOSKELETAL: The patient walks with a slightly antalgic gait. Complains of right hip pain that is localized, but increased with weightbearing. She has diffuse tenderness in her axial back. Her lower extremity strength judged to be 5/5 in all major muscle groups. She does rise from the chair to a standing position using the armrest for support. We reviewed the fact that opiate medications are being used to provide analgesia adequate to support activities of daily living, not attempting to achieve a specific pain score on the 0-10 Visual Analog Scale. The current opiate medications are providing sufficient analgesia to allow the patient to participate in activities of daily living. The patient is not exhibiting any aberrant behavior suggestive of drug diversion. The patient is not having any adverse reactions to medications. The patient is not suffering from daytime somnolence or mental acuity changes. The patient is managing opiate-induced constipation with appropriate iazz-euy-gbhawli agents and dietary considerations. The patient was counseled on concern for caution with operating a motor vehicle while using opiate medications. A physical exam was performed and the patient's functional status was evaluated. All patients with back pain were advised against the bed rest greater than 4 days and were advised to return to normal activities. Pain score assessment was noted and the treatment plan was reviewed with the patient. All current medications, both prescribed and OTC were reviewed and reconciled on the electronic medical record. Tobacco screening was accomplished and smoking cessation was advised when indicated. BMI was noted and diet/exercise modification was recommended for all patients following outside normal parameters. I reviewed with the patient today their responsibilities to safeguard prescription medications, reviewed their responsibility to utilize medications only as prescribed by the physician. They are to seek and receive pain medications only from 1 physician group ( [facility]). They are to use 1 pharmacy and keep the clinic informed if they change pharmacies. Their responsibilities include making followup visits in a timely fashion and to avoid abrupt discontinuation of medication usage. Their responsibilities further [facility] [address] [place] [address] PAIN MANAGEMENT CONSULTATION Name: OTTONIEL NICK Room #: REG [facility].#: [id number] Admission: 04/06/19 ������������������ Attend Phys: Vero Mendez Discharge: ������������������ Date of : 51 Report #: [id number] include bringing their medications (bottles from the pharmacy with residual pills) to the visit for possible confirmation of pill counts and the patient understands it is their responsibility to submit to random drug screens to ensure both that the medications prescribed are present, and that no other controlled substances are present. All prescriptions provided today were generated electronically. PLAN: 1. We discussed the treatment options with the patient today. We will make an appointment for a bursa injection into her right hip. She has had this greater than a year and a half ago and found it very beneficial in controlling her pain. It has slowly returned. Appointment will be made with Dr. Jamie Juarez. 2. Medications: She is doing quite well on her Butrans patch 10mcg once weekly. Prescriptions given for #4 with 2 additional refills. We did talk about the CDC guidelines, how this is a fairly high dose when converted to Morphine according to the CDC guidelines. I explained that we will try to decrease her back to 7.5 mcg patch at her next 3-month cycle for medications. The patient is agreeable to try this. She had been on 5 mcg for a long time and she does take her tramadol very sparingly. She thinks that she will be able to tolerate a lower dose. 3. Amitriptyline 50 mg tablets one at bedtime with refills was given and no tramadol prescriptions were needed at this time; the patient reports plenty of medications left from her last 3 months. 4. The patient is seen in collaboration with Dr. Jamie Juarez today. ��������������������������������������������� <ELECTRONICALLY SIGNED> ���������������������������������������� By: Vero Mendez ��������������������������������������������� 04/07/19 1601 [id number] 0215 Vero Mendez /cory
== END ==
LOC: PAIN 06:48
DX: M19.90 Unspecified osteoarthritis, unspecified site (principal); M34.9 Systemic sclerosis, unspecified; G89.29 Other chronic pain; Z79.899 Other long term (current) drug therapy; Z79.4 Long term (current) use of insulin; Z88.0 Allergy status to penicillin; Z88.2 Allergy status to sulfonamides; Z88.8 Allergy status to other drugs, medicaments and biological substances

== ENCOUNTER → 2019-04-12 | Outpatient (CLI) | payer OTHER ==
[~2019-04-12] VITALS: Ht 162.6 cm; Wt 78.0 kg
--- NOTE | ~2019-04-12 | HPC ---
[facility] [place] [address] PAIN MANAGEMENT CONSULTATION Name: OTTONIEL NICK Room #: REG LAILA eLwis.#: [id number] Admission: 04/12/19 ������������������ Attend Phys: Jamie Juarez DO Discharge: ������������������ Date of : 53 Report #: [id number] THIS REPORT FOR: //name// CC: Abimbola Juarez DATE OF SERVICE: 04/12/2019 REFERRING PHYSICIAN: Abimbola Hankins MD CHIEF COMPLAINT: Right hip pain. HISTORY OF PRESENT ILLNESS: As you know, the patient is a 63-year-old female who has been followed by my partner, Dr. Memo Juarez for an extended period of time for various pain generators. She returns today in followup visit requesting a right intra-articular hip injection as she has noted excellent benefit with previous injection. She is placing pain today at 6/10. She denies injury, trauma or any changes in medical history since our last visit. She returns to undergo right intraarticular hip injection in hopes of improving pain. ALLERGIES: PENICILLIN, SULFA, CODEINE, ERYTHROMYCIN. CURRENT MEDICATIONS: Butrans, amitriptyline, tramadol, Xeljanz, Mirapex, insulin, duloxetine, metoclopramide, albuterol, benazepril, prednisone, polyethylene glycol, acetaminophen, alprazolam, aspirin, carvedilol, cyanocobalamin, levothyroxine, ondansetron, omeprazole, Entresto, furosemide, Lunesta, spironolactone, and ranitidine. SOCIAL HISTORY: The patient reports herself a former smoker. She denies IV or illicit drug use. Denies any chronic alcohol use. She is on disability. Unaccompanied today. IMAGING: No new imaging available. PQRS: The patient has known arthritic changes of the back, bilateral hips. She indicates she does have rheumatoid arthritis involving the hands and the shoulders. She is placing pain intensity at 6/10. She is a fall risk, but has not had a fall in the last 3 months. She is not on blood thinners, but is treated for hypertension. She is on chronic opioids and has a moderate addiction potential. Pain impact score 39/70, moderate interference of daily activities secondary to pain. PHYSICAL EXAMINATION: VITAL SIGNS: Blood pressure 116/65, pulse 72, respiratory rate 14 and [facility] [address] [place] [address] PAIN MANAGEMENT CONSULTATION Name: OTTONIEL NICK Room #: REG LAILA Lexis#: [id number] Admission: 04/12/19 ������������������ Attend Phys: Jamie Juarez DO Discharge: ������������������ Date of : 51 Report #: [id number] unlabored. The patient is 100% on room air. Height 5 feet 4 inches tall, weight 172 pounds, BMI calculated 29.5. GENERAL: A well-developed, well-nourished, well-hydrated 63-year-old female, appears older than stated age, pain is rated today at 6/10 involving right hip. HEENT: Normocephalic, atraumatic. Speech is fluent for patient. EXTREMITIES: Show no clubbing, no cyanosis. MUSCULOSKELETAL: There is palpatory tenderness over the right hip. Well-healed surgical scars with significant amount of skin color changes over the scar tissue itself. Active and passive range of motion of the right hip intensifies pain. ASSESSMENT: 1. Right hip pain. 2. Osteoarthritis of the right hip. 3. Chronic intractable pain. PLAN: 1. The patient returns today in followup visit requesting to undergo right intraarticular hip injection under fluoroscopic guidance. The patient had this procedure performed in the past with Dr. Memo Juarez, which provided excellent benefit. She returns today in followup visit without inciting injury or trauma requesting to undergo intraarticular hip injection. She feels this injection has been significantly beneficial over the past year. She returns to undergo the injection again today. She has been advised risks and benefits of the procedure, which include, but are not necessarily limited to bleeding, bruising, infection, worsening pain, no relief of pain, also risk of temporary or permanent muscle weakness, temporary or permanent nerve damage, possible paralysis, joint destruction and . The patient states understood and wished to proceed. 2. No medication changes made at today's visit. The patient will continue current medical therapy as previously prescribed. 3. We will see the patient back in followup visit on an as needed basis for possible next in the series of right intraarticular hip injections. PROCEDURE NOTE DESCRIPTION OF PROCEDURE: Right intra-articular hip injection under fluoroscopic guidance. After obtaining written consent, the patient was taken back to fluoroscopy suite, placed in a supine position. The image intensifier was then brought into position over the right hip and AP imaging was obtained. The area overlying the injection site was marked and then sterilely prepped with chlorhexidine. A 27-gauge 1-1/4 inch needle was then used to anesthetize skin and subcutaneous tissue with 3 mL of 1% lidocaine. [address] [address] PAIN MANAGEMENT CONSULTATION Name: OTTONIEL NICK Room #: REG LAILA Pires#: [id number] Admission: 04/12/19 ������������������ Attend Phys: Jamie Juarez DO Discharge: ������������������ Date of : 51 Report #: [id number] A 22-gauge 3-1/2 inch spinal needle with bent tip was advanced under fluoroscopic guidance towards the proximal head of the femur. Needle was advanced until reaching the head of the femur, then retracted approximately 1 mm. After negative aspiration for heme, 0.4 mL of Omnipaque was injected demonstrating an excellent right hip arthrogram. After negative aspiration for heme, 5 mL of a solution containing 1 mL 40 mg per mL, 40 mg total triamcinolone and 4 mL of bupivacaine 0.5% injected slowly. Needle was then retracted assisted, flushed with 0.5 mL of bupivacaine 0.5% then removed. Sterile bandage placed over injection site. There were no new motor deficits present in the lower extremities following procedure. The patient tolerated procedure well, carefully escorted to recovery room in stable condition. No apparent complications. VAS before procedure rated at 6/10, VAS prior to discharge 0/10. ��������������������������������������������� ���������������������������������������� By: ��������������������������������������������� 1715 0033 Jamie Juarez DO /nt
[2019-04-12 10:20] VITALS: BP 116/65
--- NOTE | 2019-04-12 10:29 | NUR ---
Pain Clinic Assessment: 1. History of Osteoarthritis: BACK History of Rheumatoid Arthritis: YES HANDS SHOULDERS 2. Height: 5 ft. 4 in. 162.6 cm. Weight: 172.0 lb. oz. 78.019 kg. Patient's BMI: 29.5 3. Vital Signs: BP: 116/65 Pulse: 72 Resp: 14 Temp: 02 Sat: 100 ECG Mon: 4. Pain Intensity: 6 5. Fall Risk: Dizziness: N Needs help standing or walking: Y Fallen in the last 3 months: N Fall risk comments: FELL AT HOME IN MARCH- FELL FROM BED WAS HOSPITALIZED AND TREATED- DOING WELL NOW 6. Patient on Blood Thinner: None 7. History of Hypertension: Y 8. Opioid Therapy greater than 6 weeks: Y Opiate Contract Signed: 03/06/16 9. Risk Assessment Tool Provided: 4-MOD 10. Functional Assessment Tool: 39 11. Recreational Drug Use: Never Drug Type: Tobacco Use: Former Smoker Tobacco Type: Amount or Packs/day: How Many Years: Alcohol Use: No Frequency: Quant:
== END | disposition home or self-care (01) ==
LOC: PAIN 06:56
DX: M16.11 Unilateral primary osteoarthritis, right hip (principal); G89.29 Other chronic pain; I10 Essential (primary) hypertension; Z88.0 Allergy status to penicillin; Z88.2 Allergy status to sulfonamides; Z88.8 Allergy status to other drugs, medicaments and biological substances; Z79.899 Other long term (current) drug therapy; Z87.891 Personal history of nicotine dependence; Z79.82 Long term (current) use of aspirin

== ENCOUNTER → 2019-08-02 | Outpatient (CLI) | payer OTHER ==
[~2019-08-02] VITALS: Ht 162.6 cm; Wt 68.0 kg
[~2019-08-02] MED LIST changes: +BUTRANS1 EAC4 INTRADERM
[2019-08-02 09:48] VITALS: BP 116/63
--- NOTE | 2019-08-02 10:06 | NUR ---
Pain Clinic Assessment: 1. History of Osteoarthritis: BACK History of Rheumatoid Arthritis: YES HANDS SHOULDERS 2. Height: 5 ft. 4 in. 162.6 cm. Weight: 150.0 lb. oz. 68.040 kg. Patient's BMI: 25.7 3. Vital Signs: BP: 116/63 Pulse: 106 Resp: 14 Temp: 02 Sat: 95 ECG Mon: 4. Pain Intensity: 6-7 5. Fall Risk: Dizziness: Y Needs help standing or walking: N Fallen in the last 3 months: Y Fall risk comments: FELL AT HOME IN MARCH- FELL FROM BED WAS HOSPITALIZED AND TREATED- DOING WELL NOW 6. Patient on Blood Thinner: None 7. History of Hypertension: Y 8. Opioid Therapy greater than 6 weeks: Y Opiate Contract Signed: 03/06/16 9. Risk Assessment Tool Provided: 2-low 10. Functional Assessment Tool: 11. Recreational Drug Use: Never Drug Type: Tobacco Use: Former Smoker Tobacco Type: Amount or Packs/day: How Many Years: Alcohol Use: No Frequency: Quant:
--- NOTE | 2019-08-03 07:58 | HPC ---
[facility] [place] [address] PAIN MANAGEMENT CONSULTATION Name: OTTONIEL NICK Room #: REG LAILA Lexis#: [id number] Admission: 08/02/19 Attend Phys: Vero Mendez Discharge: Date of : 51 Report #: [id number] THIS REPORT FOR: //name// CC: Vero Hankins DATE OF SERVICE: 08/02/2019 CHIEF COMPLAINT: Chronic pain secondary to scleroderma and osteoarthritis. HISTORY OF PRESENT ILLNESS: This is a pleasant 64-year-old female who returns to the pain clinic today for refill of her medications. We have not seen her in the clinic since April. She reports that she broke her toe and went to the hospital for treatment. While she was there, they discovered she had pneumonia, so she was hospitalized. During the hospitalization, they realize she had a mitral valve that needed to be replaced, so she had that procedure performed while she was there. She had been home a few days and she fell. She reports she "broke her back and ended up having a vertebroplasty at the T6 level. She then went to rehab for a significant amount of time and was discharged 2 days ago. She continues to have ongoing issues with her pneumonia and today is having some slight shortness of breath with exertion. She reports her pain score of 6-7 today in her mid-back and the right rib cage as a result of her fall. She also has her ongoing pain in her hip. The patient reports that her pain is a 6-7 today, worse with activity and walking. She feels that her medications are beneficial as well as lying down. She denies problems with constipation as long as she takes MiraLax on an as needed basis. Today, she would like refills of her medications. ALLERGIES: PENICILLIN, SULFA, CODEINE, AND ERYTHROMYCIN. CURRENT LIST OF MEDICATIONS: Butrans 10 mcg patch, amitriptyline 50 mg at bedtime, tramadol 50 mg p.r.n., Xeljanz XR, Mirapex, Aldactone, Lunesta, Lasix, Entresto, Nexium, Synthroid, vitamin B12, Coreg, alprazolam, Tylenol, MiraLax, prednisone, Aricept, Lantus, ProAir, Reglan, Cymbalta and NovoLog. PQRS: 1. She has a history of osteoarthritis in her back as well as rheumatoid arthritis in her hands and shoulders. 2. Height is 5 feet 4 inches, weight is 150, BMI is 25. 3. Vital signs: 116/63, pulse is 106, respirations 14, oxygen sat is 95. 4. Pain score is 6-7. 5. Complains of slight dizziness, does not need help walking, has fallen in the last 3 months, resulting in a compression fracture. 6. The patient is not on any blood thinners, but does take medicine for hypertension. [address] [address] PAIN MANAGEMENT CONSULTATION Name: OTTONIEL NICK Room #: CASANDRA Pires#: [id number] Admission: 08/02/19 Attend Phys: Vero Mendez Discharge: Date of : 51 Report #: [id number] 7. Opioid therapy is greater than 6 weeks; therefore, an opioid signed contract is on the chart. 8. Risk assessment tool is low. 9. Functional assessment is 45/70. 10. Recreational drug use, she denies. She is a former smoker and does not drink alcohol. According to the prescription monitoring system, the patient has filled several scripts from the rehabilitation doctor upon discharge from the hospital. Otherwise, she has no aberrant fills from other doctors. She is on time for her medications today. There is a recent drug screen on the chart from March that is appropriate for her medications according to the prescription monitoring system. PHYSICAL EXAMINATION: GENERAL: This is a well-developed, well-nourished, well-hydrated 64-year-old female who appears slightly older than her stated age and looking slightly febrile today from her recent hospitalizations, complaining of pain of 6-7 today. HEENT: Normocephalic, atraumatic. Pupils equal. Speech is fluent. EXTREMITIES: No clubbing, no cyanosis. MUSCULOSKELETAL: She has tenderness over her right hip as well as her mid thoracic region that radiates to her right rib area today, a recent compression fracture with vertebroplasty. She has active and passive range of motion, does elicit some pain in her lumbar spine as well as her right hip. Her lower extremity strength is 4/5 and deconditioned. ASSESSMENT: 1. Osteoarthritis, multiple joints. 2. Chronic intractable pain. 3. Thoracic back pain with recent vertebroplasty. 4. Pneumonia. 5. Scleroderma. We reviewed the fact that opiate medications are being used to provide analgesia adequate to support activities of daily living, not attempting to achieve a specific pain score on the 0-10 Visual Analog Scale. The current opiate medications are providing sufficient analgesia to allow the patient to participate in activities of daily living. The patient is not exhibiting any aberrant behavior suggestive of drug diversion. The patient is not having any adverse reactions to medications. The patient is not suffering from daytime somnolence or mental acuity changes. The patient is managing opiate-induced constipation with appropriate pnfj-hxn-duqnwsy agents and dietary considerations. The patient was counseled on concern for caution with operating a motor vehicle while using opiate medications. [facility] [address] [place] [address] PAIN MANAGEMENT CONSULTATION Name: OTTONIEL NICK Room #: REG LAILA M.R.#: [id number] Admission: 08/02/19 Attend Phys: Vero ETHAN Isidorosheri Discharge: Date of : 51 Report #: [id number] A physical exam was performed and the patient's functional status was evaluated. All patients with back pain were advised against the bed rest greater than 4 days and were advised to return to normal activities. Pain score assessment was noted and the treatment plan was reviewed with the patient. All current medications, both prescribed and OTC were reviewed and reconciled on the electronic medical record. Tobacco screening was accomplished and smoking cessation was advised when indicated. BMI was noted and diet/exercise modification was recommended for all patients following outside normal parameters. I reviewed with the patient today their responsibilities to safeguard prescription medications, reviewed their responsibility to utilize medications only as prescribed by the physician. They are to seek and receive pain medications only from 1 physician group ([facility]). They are to use 1 pharmacy and keep the clinic informed if they change pharmacies. Their responsibilities include making followup visits in a timely fashion and to avoid abrupt discontinuation of medication usage. Their responsibilities further include bringing their medications (bottles from the pharmacy with residual pills) to the visit for possible confirmation of pill counts and the patient understands it is their responsibility to submit to random drug screens to ensure both that the medications prescribed are present, and that no other controlled substances are present. All prescriptions provided today were generated electronically. PLAN: 1. We discussed treatment options with the patient today. We had discussed previously reducing her Butrans patch back to 7.5 mcg and ultimately back to 5 mcg if she tolerates this. Based on her recent hospitalizations and pneumonia that do affect her breathing. I think now is the time to decrease her to a lower dose. Hopefully, this will help with her respiratory status. The patient is agreeable with this. We will electronically sent Butrans 7.5 mcg patch #4 with 2 additional refills as well as tramadol that she does take on a sparingly basis #90 set with 2 additional refills. This typically lasts longer than 3 months. 2. We will refill her amitriptyline 50 mg at bedtime as well, two additional refills. 3. I did caution the patient of taking her Xanax and her pain medications at the same time encouraging her to decrease that medication if she is able. This should further help her respiratory status. The patient verbalizes understanding. 4. She found the right hip injection performed [place] [address] PAIN MANAGEMENT CONSULTATION Name: OTTONIEL NICK Room #: REG LAILA Pires#: [id number] Admission: 08/02/19 Attend Phys: Vero Mendez Discharge: Date of : 51 Report #: [id number] very beneficial in helping control some of her right hip pain. The patient is seen in collaboration today with Dr. Jamie Juarez. <ELECTRONICALLY SIGNED> By: Vero Mendez 08/03/19 0758 [id number] Vero Mendez /nt
== END ==
LOC: PAIN 05-24 08:30
DX: M19.90 Unspecified osteoarthritis, unspecified site (principal); G89.4 Chronic pain syndrome; M54.16 Radiculopathy, lumbar region; J18.9 Pneumonia, unspecified organism; M34.9 Systemic sclerosis, unspecified

== ENCOUNTER → 2019-12-07 | Outpatient (CLI) | payer OTHER ==
[~2019-12-07] VITALS: Ht 162.6 cm; Wt 60.2 kg
[~2019-12-07] MED LIST changes: +METHADOSE5 MG PO
[2019-12-07 13:10] VITALS: BP 103/57
--- NOTE | 2019-12-07 13:37 | NUR ---
Pain Clinic Assessment: 1. History of Osteoarthritis: BACK History of Rheumatoid Arthritis: YES HANDS SHOULDERS 2. Height: 5 ft. 4 in. 162.6 cm. Weight: 132.8 lb. oz. 60.238 kg. Patient's BMI: 22.8 3. Vital Signs: BP: 103/57 Pulse: 72 Resp: 14 Temp: 02 Sat: ECG Mon: 4. Pain Intensity: 6-76-7 5. Fall Risk: Dizziness: Y Needs help standing or walking: Y Fallen in the last 3 months: N Fall risk comments: FELL AT HOME IN MARCH- FELL FROM BED WAS HOSPITALIZED AND TREATED- DOING WELL NOW 6. Patient on Blood Thinner: None 7. History of Hypertension: Y 8. Opioid Therapy greater than 6 weeks: Y Opiate Contract Signed: 03/06/16 9. Risk Assessment Tool Provided: 2-low 10. Functional Assessment Tool: 11. Recreational Drug Use: Never Drug Type: Tobacco Use: Former Smoker Tobacco Type: Cigarettes Amount or Packs/day: How Many Years: Alcohol Use: No Frequency: Quant:
--- NOTE | 2019-12-07 16:06 | HPC ---
[facility] [place] [address] [place] [address] PAIN MANAGEMENT CONSULTATION Name: OTTONIEL NICK Room #: REG LAILA M.Mallika.#: [id number] Admission: 12/07/19 Attend Phys: Jamie Juarez DO Discharge: Date of : 51 Report #: [id number] THIS REPORT FOR: cc: Abimbola Hankins MD, Carrie W. MD Johnson, James E. DO ~ DATE OF SERVICE: 12/07/2019 REFERRING PHYSICIAN: Dr. Abimbola Hankins. CHIEF COMPLAINT: Chronic pain secondary to osteoarthritis and scleroderma. HISTORY OF PRESENT ILLNESS: As you know, the patient is a pleasant 64-year-old female who returns today in followup visit requesting refill on medications. She did receive a letter as did we indicating the buprenorphine will no longer be covered in the oral or in the patch form. She returns to make adjustments in medication management and discussed other options for treatment. She reports pain level today of level of 6-7/10. She reports a fall at home in March, falling out of bed where she was hospitalized, treated and then released. Apparently, she has had further falls since that time. This was the most significant. She states she is weak and had recently been diagnosed with pneumonia, which led to her most recent hospitalization. She returns today requesting adjustments in medication management and discuss treatment options for pain control. ALLERGIES: PENICILLIN, SULFA, CODEINE, ERYTHROMYCIN. CURRENT MEDICATIONS: Tramadol 50 mg every 6 hours p.r.n. for pain, Butrans patch 7.5 mcg q. week, amitriptyline 50 mg p.o. at bedtime, Xeljanz XR 11 mg once a day, Mirapex 2 mg once a day, spironolactone 25 mg once a day, Lunesta 3 mg once a day, furosemide 20 mg per day, omeprazole 40 mg per day, ondansetron 4 mg p.r.n., levothyroxine 25 mcg per day, cyanocobalamin 500 mcg once a day, alprazolam 0.25 mg 2-3 times that evening hours, polyethylene glycol 17 grams per day, prednisone 5 mg per day, benazepril 10 mg once a day, Lantus 36 units subcutaneous before bedtime, albuterol 2 puffs q. 4 hours p.r.n., metoclopramide 10 mg per day, duloxetine 60 mg per day, NovoLog sliding scale. IMAGING: No new imaging available. PQRS: The patient has known arthritic changes to the multiple joints including back, shoulders, hips and knees. She reports positive for rheumatologic issues involving all weightbearing joints. She is placing pain intensity today at 6-7/10. She is a fall risk and has had multiple falls since the last visit. She has been advised to utilize a roller walker. She is not on blood thinners, but is treated for hypertension. She is on chronic opioids and reportedly has a [address] [place] [address] PAIN MANAGEMENT CONSULTATION Name: OTTONIEL NICK Room #: REG LAILA Pires#: [id number] Admission: 12/07/19 Attend Phys: Jamie Juarez DO Discharge: Date of : 51 Report #: [id number] low opioid addiction potential based on our assessment tool. Pain impact today 45/70, severe interference of daily activities secondary to pain. PHYSICAL EXAMINATION: VITAL SIGNS: Blood pressure 103/57, pulse 72, respiratory rate 14 and unlabored. The patient is 97% on room air. Height 5 feet 4 inches tall, weight 132.8 pounds, BMI calculated 22.8. GENERAL: A 64-year-old female, appears older than stated age. She is in no acute distress. She is placing pain today at 6-7/10. HEENT: Normocephalic, atraumatic. Pupils are equal. NEUROLOGIC: Speech is fluent. The patient is in a mask. EXTREMITIES: Show no clubbing, no cyanosis. There does appear to be tightening of the skin over the bilateral hands typical for scleroderma. MUSCULOSKELETAL: The patient has difficulty with weightbearing joints causing overall pain. Her gait is extremely antalgic. Range of motion of the most joints are reduced due to pain. Strength appears limited to about 4 to 4-1/2 over 5 in the upper and lower extremities. ASSESSMENT: 1. Scleroderma. 2. Osteoarthritis of multiple joints. 3. Chronic intractable pain. 4. Opioid dependency. 5. Complicated medication management utilizing scheduled medications. PLAN: 1. The patient has returned today in followup visit to discuss options for treatment as she received a similar letter that we had received of late, indicating the Butrans is no longer going to be covered by her third republic[employer] payer. We discussed with the patient that her options are somewhat limited. She did have some improvement in symptoms with methadone in the past and we discussed restarting the methadone for pain control. She denies any QT prolongation issues that may be exacerbated by the methadone. We also discussed that she would be a good candidate for an intrathecal pump though we at [facility] do not provide this option for treatment. She would have to seek treatment through [facility], [facility] or with Dr. Bradshaw at [facility], the only 3 groups providing this all alternative treatment. After this long discussion, the patient chose to make adjustments to methadone therapy. 2. The patient was provided prescription of methadone 5 mg dose 1 tab p.o. b.i.d. She will take the medication consistently. She is not to rely on this medication prophylactically. She was given releases of today, 4 weeks from today, 8 weeks from today, 3 months' worth of medication. The patient was on this medication prior to the adjustment to the Butrans, will return her to this dose of medication that she reported good efficacy. Prescriptions were all sent via e-scribe to local pharmacy. [address] [address] PAIN MANAGEMENT CONSULTATION Name: OTTONIEL NICK [id number] Admission: 12/07/19 Attend Phys: Jamie Juarez DO Discharge: Date of : 51 Report #: [id number] 3. The patient was provided prescription of tramadol 50 mg dose 1 tab p.o. t.i.d. I have given the patient #90 tablets with 2 refills. This was sent via e-scribe to local pharmacy. 4. The patient was provided refill prescription of her amitriptyline 50 mg dose 1 tab p.o. at bedtime. I have given her #30 tablets, 2 refills. Prescription sent via e-scribe to local pharmacy. 5. We reviewed the fact that opiate medications are being used to provide analgesia adequate to support activities of daily living, not attempting to achieve a specific pain score on the 0-10 Visual Analog Scale. The current opiate medications are providing sufficient analgesia to allow the patient to participate in activities of daily living. The patient is not exhibiting any aberrant behavior suggestive of drug diversion. The patient is not having any adverse reactions to medications. The patient is not suffering from daytime somnolence or mental acuity changes. The patient is managing opiate-induced constipation with appropriate zfrv-vsl-rqxhdqj agents and dietary considerations. The patient was counseled on concern for caution with operating a motor vehicle while using opiate medications. A physical exam was performed and the patient's functional status was evaluated. All patients with back pain were advised against the bed rest greater than 4 days and were advised to return to normal activities. Pain score assessment was noted and the treatment plan was reviewed with the patient. All current medications, both prescribed and OTC were reviewed and reconciled on the electronic medical record. Tobacco screening was accomplished and smoking cessation was advised when indicated. BMI was noted and diet/exercise modification was recommended for all patients following outside normal parameters. I reviewed with the patient today their responsibilities to safeguard prescription medications, reviewed their responsibility to utilize medications only as prescribed by the physician. They are to seek and receive pain medications only from 1 physician group ( [facility]). They are to use 1 pharmacy and keep the clinic informed if they change pharmacies. Their responsibilities include making followup visits in a timely fashion and to avoid abrupt discontinuation of medication usage. Their responsibilities further include bringing their medications (bottles from the pharmacy with residual pills) to the visit for possible confirmation of pill counts and the patient understands it is their responsibility to submit to random drug screens to ensure both that the medications prescribed are present, and that no other controlled substances are present. All prescriptions provided today were generated electronically. [address] [address] PAIN MANAGEMENT CONSULTATION Name: OTTONIEL NICK Room #: REG [facility] Lexis#: [id number] Admission: 12/07/19 Attend Phys: Jamie Juarez DO Discharge: Date of : 51 Report #: [id number] 6. We will see the patient back in followup visit in 3 months. At that time, discuss the efficacy of the methadone and make any changes necessary. <ELECTRONICALLY SIGNED> By: Jamie Juarez DO 12/07/19 1606 1501 1600 Jamie Juarez DO /nt
== END | disposition home or self-care (01) ==
LOC: PAIN 06:57
DX: M34.9 Systemic sclerosis, unspecified (principal); M19.90 Unspecified osteoarthritis, unspecified site; G89.29 Other chronic pain; I10 Essential (primary) hypertension; F11.20 Opioid dependence, uncomplicated; Z98.890 Other specified postprocedural states; Z79.899 Other long term (current) drug therapy; Z88.0 Allergy status to penicillin; Z88.2 Allergy status to sulfonamides